=== PATIENT | male | born 1975 | race Two or more races ===

== ENCOUNTER 2025-05-18 23:28 | Emergency (ER) | payer OTHER, SELFPAY ==
[2025-05-18 23:55] VITALS: BP 171/99; PULSE 77; RESP 20; TEMP 36.4; O2SAT 95; BMI 29.5
[2025-05-19 01:32] VITALS: BP 155/97; PULSE 77; RESP 19; TEMP 36.5; O2SAT 95
--- NOTE | 2025-05-19 01:46 | PC.NURSE ---
pt waiting to be seen by provider.
[2025-05-19] MEDS: Lidocaine HCl 1 % 20 ML VIAL 5 ML INFILTRATI (03:17)
--- NOTE | 2025-05-19 03:31 | ED_ITS ---
HPI - Dental/Oral General Chief complaint: Dental/Oral Stated complaint: dental pain Time Seen by Provider: 05/19/25 02:47 Source: patient Mode of arrival: ambulatory Limitations: no limitations History of Present Illness ED Provider: Dr. Adriana Peguero HPI Narrative: Patient comes to the emergency room complaining of dental pain. Patient states that for couple of days, he noticed that he had a molar that was wiggling on the mandibular side on the right. Patient states that since then he has noticed that he has pain and swelling in the mandible. Patient denies fever chills. Patient states that he does not have a dentist. Related Data Previous Rx's ?Medication ?Instructions ?Recorded albuterol sulfate 90 mcg/actuation 2 puff inhalation Q 4-6H PRN 05/19/25 aerosol inhaler (Ventolin HFA) shortness of breath or wheezing #8.5 grams amoxicillin 500 mg tablet 500 mg PO TID #30 tabs 05/19 ketorolac 10 mg tablet 10 mg PO TID PRN pain #12 ta bs 05/19/25 Allergies Allergy/AdvReac Type Severity Reaction Status Date / Time iodine Allergy Unknown Verified 05/18/25 23:59 Review of Systems Review of Systems: Constitutional : No Weight loss, No Fever, No Chills, No Night Sweats, No Fatigue, No Malaise ENT/Mouth : Complaining of dental pain in the right mandibular side, No Hearing loss, No Ear Pain, No Nasal Congestion, No Sinus Pain, No Hoarseness, No sore throat, No Rhinorrhea, No Swallowing Difficulty Eyes: No Eye Pain, No Swelling, No Redness, No Foreign Body, No Discharge, No Vision Changes Cardiovascular : No Chest Pain, No SOB, No Dyspnea on Exertion, No Orthopnea, No Edema, No Palpitations Respiratory : No Cough, No Sputum, No Wheezing, No Smoke Exposure, No Dyspnea Gastrointestinal : No Nausea, No Vomiting, No Diarrhea, No Constipation, No abdominal Pain, No Hematochezia, No Melena Genitourinary : no irregular bleeding, No Dysuria, No Urinary Frequency, No Hematuria, No Urinary Incontinence, No Urgency, No Flank Pain, No Urinary Flow Changes, No Hesitancy Musculoskeletal : No joint pain, No Myalgias, No Joint Swelling Skin : No Skin Lesions, No rash Neuro : No Weakness, No Numbness, No Paresthesias, No Loss of Consciousness, No Dizziness, No Headache Psych : No Anxiety/Panic, No Depression, No SI/HI/AH/VH, No Social Issues, Heme/Lymph: No Bruising, No Bleeding,No Lymphadenopathy Endocrine : No Polyuria, No Polydipsia, No Temperature Intolerance [facility] Social History Social History Smoked in Last 30 Days: Yes Use of substances other than those prescribed or required for medical reasons: Yes Substance Use Type: Marijuana Substance Use Frequency: Weekly Advance Directives: No Physical Exam Exam: Exam: Appearance: Alert. Oriented X3. No acute distress. Eyes: Pupils equal, round and reactive to light. ENT: Pharynx normal. Patient has an abscess in the right mandibular area. Poor dentition, multiple cavities Neck: Normal inspection. Neck supple. No lymph nodes noted. No crepitus CVS: Normal heart rate and rhythm. Pulses normal. Normal S1 and S2 Respiratory: No respiratory distress. Breath sounds normal. No Wheezing. No rales Abdomen: Soft and nontender. No rigidity. No distention. Skin: Skin warm and dry. Normal skin color. Normal skin turgor. Extremities: No lower extremity edema. No Lacerations. No Rash Neuro: Oriented X 3. No motor deficit. No sensory deficit. Moving all extremities. No slurred speech. CN 2 through 12 grossly intact Psych: calm, cooperative, normal affect Vital Signs: Vital Signs: Last Vital Signs Temp 98.1 F 05/19/25 03:53 Pulse 69 05/19/25 03:53 Resp 19 05/19/25 03:53 BP 151/105 H 05/19/25 03:53 Pulse Ox 96 05/19/25 03:53 O2 Del Method Room Air 05/19/25 03:53 BMI result Body Mass Index 29.5 Course Course Course Narrative: I discussed with the patient that he has an abscess that we could attempt to drain. Either way he has continued antibiotics. Patient agrees with plan. Medications Administered Discontinued Medications Generic Name Dose Route Start Last Admin Trade Name Cathie PRN Reason Stop Dose Admin Ibuprofen 600 mg 05/18/25 23:58 05/19/25 00:00 Ibuprofen 600 Mg Tablet PO 05/18/25 23:59 600 mg ONCE ONE Administration Lidocaine HCl 5 ml 05/19/25 03:06 05/19/25 03:17 Lidocaine Hcl 1 % 20 Ml Vial INFILTRATI 05/19/25 03:07 5 ml ONCE ONE Administration Medical Decision Making Medical Decision Making MDM Narrative: An inferior alveolar nerve block was applied. We then 18 gauge needle, 1 mL of pus was extracted. Patient was given IM Toradol and p.o. amoxicillin. Patient was provided with phone numbers to call dentist Patient states that he recently moved from [place]. Patient does not have a PCP and is concerned that he does not have an inhaler. Patient requesting if we can not send a prescription of albuterol for him PRN wheezing. Discharge Plan Discharge Clinical Impression: Dental abscess, Medication refill Patient Disposition: Home, Self-Care Instructions: Dental Abscess (ED) Additional Instructions: Please follow-up with your primary care physician tomorrow. If you have any worsening or new symptoms, please return to the emergency room or call 911 Prescriptions: New ketorolac 10 mg tablet 10 mg PO TID PRN (Reason: pain) Qty: 12 0RF amoxicillin 500 mg tablet 500 mg PO TID Qty: 30 0RF albuterol sulfate [Ventolin HFA] 90 mcg/actuation HFA aerosol inhaler 2 puff inhalation Q4-6H PRN (Reason: shortness of breath or wheezing) Qty: 8.5 1RF Print Language: Japanese
--- NOTE | 2025-05-19 03:45 | PC.NURSE ---
provider into drain abscess.
[2025-05-19 03:53] VITALS: BP 151/105; PULSE 69; RESP 19; TEMP 36.7; O2SAT 96
--- NOTE | 2025-05-19 04:11 | PC.NURSE ---
Medicted per mar, reviewed discharge instructions with pt. pt verbalized understanding, no sign of distress.
--- NOTE | 2025-05-19 04:12 | PC.NURSE ---
Elevated bp due to pain, okay to discharge provider aware.
[2025-05-19 04:13] VITALS: BP 151/105; PULSE 69; RESP 19; TEMP 36.7; O2SAT 96
== END 2025-05-19 04:13 | disposition home or self-care (01) ==
PROVIDERS: Emergency Provider Emergency Medicine
DX: K04.7 Periapical abscess without sinus (principal); Z76.0 Encounter for issue of repeat prescription
CPT/HCPCS: 96372; 99284; J1885; J2003